=== PATIENT | female | born 1985 | race American Indian/Alaskan Native ===

== ENCOUNTER 2017-03-12 18:30 | Emergency (ER) | payer SELFPAY ==
[2017-03-12] MEDS ORDERED: TYLENOL PR ONE ×2 (19:12→19:15)
[2017-03-12 20:03] LABS: BUN/Creatinine Ratio 8.88; Blood Urea Nitrogen 8 mg/dL (7-17); Calcium 9.2 mg/dL (8.4-10.2); Carbon Dioxide 22 mmol/L (22-30); Glucose 110 mg/dL (65-100)
[2017-03-12 20:04] LABS: Anion Gap 21 mmol/L; Chloride 95.1 mmol/L (98-107); Potassium 3.4 mmol/L (3.6-5.0); Sodium 135 mmol/L (137-145)
--- NOTE | 2017-03-12 20:05 | XRay Report ---
FINAL REPORT PROCEDURE: XR CHEST 1V AP TECHNIQUE: Chest radiograph anteroposterior view. CPT 13068 HISTORY: chest pain COMPARISON: No prior studies are available for comparison. FINDINGS: Heart: Normal. Mediastinum/Vessels: Normal. Lungs/Pleural space: Normal. Bony thorax: No acute osseous abnormality. Life support devices: None. IMPRESSION: No acute cardiopulmonary abnormality.
[2017-03-12 20:18] LABS: Basophils % (Auto) 0.3 % (0.0-1.8); Eosinophils % (Auto) 0.2 % (0.0-4.3); Hemoglobin 12.9 gm/dl (10.1-14.3); Mean Corpuscular HGB Conc 34 % (30-34); Mean Corpuscular Hemoglobin 28 pg (28-32); Mean Corpuscular Volume 83 fl (79-97); Platelet Count 150 K/mm3 (140-440); Red Blood Count 4.57 M/mm3 (3.65-5.03); Red Cell Distribution Width 14.7 % (13.2-15.2); White Blood Count 15.9 K/mm3 (4.5-11.0)
[2017-03-12] MEDS ORDERED: ZOFRAN ODT PO ONE (20:20)
[2017-03-12] MEDS ORDERED: ZOFRAN ODT ONE (20:21)
[2017-03-13] MEDS ORDERED: TORADOL IV ONE (00:17)
[2017-03-13] MEDS ORDERED: NACL 0.9% 1000 ML 1,000 ML IV ONE ×2 (00:17→00:18)
[2017-03-13] MEDS ORDERED: BENADRYL IV ONE (00:18)
[2017-03-13] MEDS ORDERED: REGLAN IV ONE (00:18)
[2017-03-13 02:30] LABS: Bacteria,Urine 1+ /HPF (Negative); Bilirubin,Urine SM (Negative); Blood,Urine SM (Negative); Ketones,Urine 20 mg/dL (Negative); Leukocyte Esterase,Urine MOD (Negative); Mucus,Urine 3+ /HPF; Nitrite,Urine NEG (Negative)
[2017-03-13] MEDS ORDERED: BACTRIM DS PO ONE (02:50)
--- NOTE | 2017-03-13 02:55 | Emergency Department Report ---
ED General Adult HPI - General Chief complaint: Chest Pain Stated complaint: FLU SYMPTOMS,CHEST PAIN/COUGH/HEADACHE/CLAIRE Time Seen by Provider: 03/13/17 00:08 Source: patient Mode of arrival: Ambulatory Limitations: No Limitations - History of Present Illness Initial comments: Patient is a 31-year-old female past medical history of cardiomyopathy who presents with aches and body pains chest pain and dysuria as single and on for last 3 days. Patient states that she has been having some pain in her chest that's a 4 out of 10. It is located in the middle of her chest it is a sore type pain it doesn't radiate and nothing makes it better or worse. Onset of her symptoms was gradual. She says associated with this chest pain as cough and congestion. She also states that she has bad body aches. And that she's been so nauseous she hasn't been able to keep any food down. Patient states that she vomits old her [id number] medications so she came to the emergency department to control of her nausea. Severity scale (0 -10): 0 - Related Data Previous Rx's Medication Instructions Recorded Last Taken Type D-Methorphan/PE/Acetaminophen 1 each PO Q6HR PRN #30 tablet 03/13/17 Unknown Rx [Tylenol Cold Multi-Symp Caplet] Ondansetron [Zofran ODT TAB] 8 mg PO Q8HR PRN #15 tab.rapdis 03/13/17 Unknown Rx Sulfamethoxazole/Trimethoprim 1 each PO BID #10 tablet 03/13/17 Unknown Rx [Bactrim DS TAB] Allergies Allergy/AdvReac Type Severity Reaction Status Date / Time latex Allergy Hives Verified 03/12/17 18:47 ED Review of Systems ROS: Stated complaint: FLU SYMPTOMS,CHEST PAIN/COUGH/HEADACHE/CLAIRE Other details as noted in HPI Constitutional: fever, malaise. denies: chills Eyes: denies: eye pain, eye discharge, vision change ENT: denies: ear pain, throat pain Respiratory: cough. denies: shortness of breath, wheezing Cardiovascular: denies: chest pain, palpitations Endocrine: no symptoms reported Gastrointestinal: nausea, vomiting. denies: abdominal pain, diarrhea Genitourinary: denies: urgency, dysuria, discharge Musculoskeletal: myalgia. denies: back pain, joint swelling, arthralgia Skin: denies: rash, lesions Neurological: denies: headache, weakness, paresthesias Psychiatric: denies: anxiety, depression Hematological/Lymphatic: denies: easy bleeding, easy bruising ED Past Medical Hx - Past Medical History Hx Congestive Heart Failure: Yes - Surgical History Past Surgical History?: No - Social History Smoking Status: Never Smoker Substance Use Type: None - Medications Home Medications: Home Medications Medication Instructions Recorded Confirmed Last Taken Type D-Methorphan/PE/Acetaminophen 1 each PO Q6HR PRN #30 tablet 03/13/17 Unknown Rx [Tylenol Cold Multi-Symp Caplet] Ondansetron [Zofran ODT TAB] 8 mg PO Q8HR PRN #15 tab.rapdis 03/13/17 Unknown Rx Sulfamethoxazole/Trimethoprim 1 each PO BID #10 tablet 03/13/17 Unknown Rx [Bactrim DS TAB] ED Physical Exam - General Limitations: No Limitations General appearance: alert, in no apparent distress - Head Head exam: Present: atraumatic, normocephalic - Eye Eye exam: Present: normal appearance - ENT ENT exam: Present: mucous membranes moist - Neck Neck exam: Present: normal inspection - Respiratory Respiratory exam: Present: normal lung sounds bilaterally. Absent: respiratory distress - Cardiovascular Cardiovascular Exam: Present: regular rate, normal rhythm. Absent: systolic murmur, diastolic murmur, rubs, gallop - GI/Abdominal GI/Abdominal exam: Present: soft, normal bowel sounds - Extremities Exam Extremities exam: Present: normal inspection - Back Exam Back exam: Present: normal inspection - Neurological Exam Neurological exam: Present: alert, oriented X3 - Psychiatric Psychiatric exam: Present: normal affect, normal mood - Skin Skin exam: Present: warm, dry, intact, normal color. Absent: rash ED Course Vital Signs 03/12/17 03/12/17 03/12/17 18:47 19:16 20:17 Temperature 102.3 F H 100.1 F H Pulse Rate 110 H Respiratory 20 20 Rate Blood Pressure 115/73 Blood Pressure [Right] O2 Sat by Pulse 100 Oximetry 03/12/17 03/13/17 03/13/17 23:29 00:00 03:17 Temperature 98.3 F 98.9 F Pulse Rate 77 Respiratory 18 18 Rate Blood Pressure Blood Pressure 136/88 [Right] O2 Sat by Pulse 99 99 Oximetry ED Medical Decision Making - Lab Data Result diagrams: 03/12/17 19:18 03/12/17 19:18 Lab Results 03/12/17 03/12/17 03/12/17 Range/Units 19:18 19:18 21:25 WBC 15.9 H (4.5-11.0) K/mm3 RBC 4.57 (3.65-5.03) M/mm3 Hgb 12.9 (10.1-14.3) gm/dl Hct 38.0 (30.3-42.9) % MCV 83 (79-97) fl MCH 28 (28-32) pg MCHC 34 (30-34) % RDW 14.7 (13.2-15.2) % Plt Count 150 (140-440) K/mm3 Lymph % (Auto) 4.7 L (13.4-35.0) % [place] % (Auto) 11.9 H (0.0-7.3) % Eos % (Auto) 0.2 (0.0-4.3) % Baso % (Auto) 0.3 (0.0-1.8) % Lymph # 0.7 L (1.2-5.4) K/mm3 [place] # 1.9 H (0.0-0.8) K/mm3 Eos # 0.0 (0.0-0.4) K/mm3 Baso # 0.0 (0.0-0.1) K/mm3 Seg Neutrophils % 82.9 H (40.0-70.0) % Seg Neutrophils # 13.1 H (1.8-7.7) K/mm3 Sodium 135 L (137-145) mmol/L Potassium 3.4 L (3.6-5.0) mmol/L Chloride 95.1 L (98-107) mmol/L Carbon Dioxide 22 (22-30) mmol/L Anion Gap 21 mmol/L BUN 8 (7-17) mg/dL Creatinine 0.9 (0.7-1.2) mg/dL Estimated GFR > 60 ml/min BUN/Creatinine Ratio 8.88 % Glucose 110 H (65-100) mg/dL Calcium 9.2 (8.4-10.2) mg/dL Troponin T < 0.010 < 0.010 (0.00-0.029) ng/mL Urine Color (Yellow) Urine Turbidity (Clear) Urine pH (5.0-7.0) Ur Specific [place] (1.003-1.030) Urine Protein (Negative) mg/dL Urine Glucose (UA) (Negative) mg/dL Urine Ketones (Negative) mg/dL Urine Blood (Negative) Urine Nitrite (Negative) Urine Bilirubin (Negative) Urine Ictotest (Negative) Urine Urobilinogen (<2.0) mg/dL Ur Leukocyte Esterase (Negative) Urine WBC (Auto) (0.0-6.0) /HPF Urine RBC (Auto) (0.0-6.0) /HPF U Epithel Cells (Auto) (0-13.0) /HPF Urine Bacteria (Auto) (Negative) /HPF Urine Mucus /HPF Urine HCG, Qual (Negative) 03/13/17 03/13/17 Range/Units 00:43 Unknown WBC (4.5-11.0) K/mm3 RBC (3.65-5.03) M/mm3 Hgb (10.1-14.3) gm/dl Hct (30.3-42.9) % MCV (79-97) fl MCH (28-32) pg MCHC (30-34) % RDW (13.2-15.2) % Plt Count (140-440) K/mm3 Lymph % (Auto) (13.4-35.0) % [place] % (Auto) (0.0-7.3) % Eos % (Auto) (0.0-4.3) % Baso % (Auto) (0.0-1.8) % Lymph # (1.2-5.4) K/mm3 [place] # (0.0-0.8) K/mm3 Eos # (0.0-0.4) K/mm3 Baso # (0.0-0.1) K/mm3 Seg Neutrophils % (40.0-70.0) % Seg Neutrophils # (1.8-7.7) K/mm3 Sodium (137-145) mmol/L Potassium (3.6-5.0) mmol/L Chloride (98-107) mmol/L Carbon Dioxide (22-30) mmol/L Anion Gap mmol/L BUN (7-17) mg/dL Creatinine (0.7-1.2) mg/dL Estimated GFR ml/min BUN/Creatinine Ratio % Glucose (65-100) mg/dL Calcium (8.4-10.2) mg/dL Troponin T < 0.010 (0.00-0.029) ng/mL Urine Color [place] (Yellow) Urine Turbidity Slightly-cloudy (Clear) Urine pH 5.0 (5.0-7.0) Ur Specific [place] 1.021 (1.003-1.030) Urine Protein 100 mg/dl (Negative) mg/dL Urine Glucose (UA) Neg (Negative) mg/dL Urine Ketones 20 (Negative) mg/dL Urine Blood Sm (Negative) Urine Nitrite Neg (Negative) Urine Bilirubin Sm (Negative) Urine Ictotest <1.0 (Negative) Urine Urobilinogen 4.0 (<2.0) mg/dL Ur Leukocyte Esterase Mod (Negative) Urine WBC (Auto) 81.0 H (0.0-6.0) /HPF Urine RBC (Auto) 9.0 (0.0-6.0) /HPF U Epithel Cells (Auto) 19.0 H (0-13.0) /HPF Urine Bacteria (Auto) 1+ (Negative) /HPF Urine Mucus 3+ /HPF Urine HCG, Qual Negative (Negative) - Medical Decision Making Chief medical diagnosis: Viral illness Differential medical diagnosis: UTI, pneumonia I will obtain a CBC, CMP, urinalysis, IV fluids, Tylenol, urine , chest x-ray Due To Patient's Dehydration and Nausea She Will Require IV Fluids and IV Antiemetic Medication. She Is Feeling Better after IV Fluids Patient Is Okay to Be Discharged Back Home with Oral Bactrim and Zofran for Nausea. Critical care attestation.: If time is entered above; I have spent that time in minutes in the direct care of this critically ill patient, excluding procedure time. ED Disposition Clinical Impression: Viral syndrome UTI (urinary tract infection) Qualifiers: Urinary tract infection type: acute cystitis Hematuria presence: with hematuria Qualified Code(s): N30.01 - Acute cystitis with hematuria Nausea and vomiting Qualifiers: Vomiting type: unspecified Vomiting Intractability: non-intractable Qualified Code(s): R11.2 - Nausea with vomiting, unspecified Fever Qualifiers: Fever type: unspecified Qualified Code(s): R50.9 - Fever, unspecified Disposition: TO HOME OR SELFCARE Is pt being admited?: No Does the pt Need Aspirin: No Condition: Stable Instructions: Urinary Tract Infection in Women (ED), Viral Syndrome (ED) Prescriptions: D-Methorphan/PE/Acetaminophen [Tylenol Cold Multi-Symp Caplet] 1 each PO Q6HR PRN #30 tablet PRN Reason: For Pain/Fever/Headache Ondansetron [Zofran ODT TAB] 8 mg PO Q8HR PRN #15 tab.rapdis PRN Reason: Nausea Sulfamethoxazole/Trimethoprim [Bactrim DS TAB] 1 each PO BID #10 tablet Referrals: BRIDGETT TANG MD [Staff Physician] - 3-5 Days Forms: Work/School Release Form(ED)
[2017-03-13 03:20] VITALS: BP 136/88
== END 2017-03-13 03:17 | disposition home or self-care (01) ==
LOC: ED 18:30
DX: N30.01 Acute cystitis with hematuria (principal); R11.2 Nausea with vomiting, unspecified; B34.9 Viral infection, unspecified; R50.9 Fever, unspecified; I50.9 Heart failure, unspecified; Z91.040 Latex allergy status
CPT/HCPCS: 36415; 71010; 80048; 81001; 81025; 84484; 85025; 87400; 93005; 93010; 96361; 96374; 96375; 99284; J1200; J1885; J2765; J7030; Q0162

== ENCOUNTER 2021-02-03 20:51 | Emergency (ER) | payer SELFPAY | END 2021-02-03 21:30 | disposition left against medical advice (07) | LOC: ED 20:51 | DX: U07.1 COVID-19 (principal); Z53.21 Procedure and treatment not carried out due to patient leaving prior to being seen by health care provider ==